=== PATIENT | male | born 1960 ===

== ENCOUNTER 2023-02-28 12:41 | Emergency (ER) | payer OTHER ==
--- OUTSIDE RECORDS SUMMARY | 2023-02-28 12:44 | XMS REPORT | Continuity of Care Document ---
:1960 Author Organization [facility] t Address [address] [facility] [address] [place] [address] Care Team Providers Name Role Phone Raju_P Attending Clinician Unavailable Rubi_P Admitting Clinician Unavailable Payers Payer Name Policy Type Policy Number Effective Date Expiration Date S [facility] [id number] [place] [id number] Problems This patient has no known problems. Allergies, Adverse Reactions, Alerts Allergy Allergy Status Severity Reaction(s) Onset Inactive Treating Comm ents Source Name Type Date Date Clinician P[facility]ILL Allergy Active Moderate Other [facility] [facility] to to severe da [facility] Social History Smoking Status Start Date Stop Date Source Former Smoker [facility] Medications Ordered Filled Start Stop Current Ordering Indication Dosage Frequency Signature Comments Components Source Medication Medication Date Date Medication? Clinician (SIG) Name Name -81 No - [facility] atorvastati atorvastati No atorvastat [facility] citalopram citalopram No 1 Q1D citalopram [facility] 40 mg 40 mg 40 mg da tablet Take tablet Take tablet Medical 1 tablet 1 tablet Take 1 Group every day every day tablet by oral by oral every day route. route. by oral route. pantoprazol pantoprazol No 1 Q1D pantoprazo [place] [facility] 40 mg e 40 mg le 40 mg da tablet,shelby tablet,shelby tablet,del Medical yed release yed release ayed G roup Take 1 Take 1 release tablet tablet Take 1 every day every day tablet by oral by oral every day route. route. by oral route. vitamin vitamin No vitamin [place] [facility] G47-fudmwuf B68-pebnruh T50-hlkshi da B1 1,000 B1 1,000 n B1 1,000 M edical mcg-100 mcg-100 mcg-100 Group mg/mL mg/mL mg/mL injection injection injection solution solution solution Take by Take by Take by injection injection injection route. route. route. Vital Signs Vital Name Observation Time Observation Value Comments Source BP Diastolic 2019-03-13 00:00:00 83 mm[Hg] [facility] Height 2019-03-13 00:00:00 68 [in_i] [facility] BMI (Body Mass 2019-03-13 00:00:00 28.4 kg/m2 [facility] BP Systolic 2019-03-13 00:00:00 134 mm[Hg] [facility] Body Weight 2019-03-13 00:00:00 186.5 [facility]lb_av[facility] BP Diastolic 2019-02-06 00:00:00 92 mm[Hg] [facility] Height 2019-02-06 00:00:00 68 [in_i] [facility] BMI (Body Mass 2019-02-06 00:00:00 27.7 kg/m2 [facility] Group BP Systolic 2019-02-06 00:00:00 150 mm[Hg] [facility] Body Weight 2019-02-06 00:00:00 182.4 [lb_av] [facility] BP Diastolic 2019-01-16 00:00:00 93 mm[Hg] [facility] Height 2019-01-16 00:00:00 68 [in_i] [facility] BMI (Body Mass 2019-01-16 00:00:00 27.8 kg/m2 [facility] BP Systolic 2019-01-16 00:00:00 164 mm[Hg] [facility] Body Weight 2019-01-16 00:00:00 183.1 [lb_av] [facility] BP Diastolic 2018-12-30 00:00:00 83 mm[Hg] [facility] Height 2018-12-30 00:00:00 68 [in_i] [facility] BMI (Body Mass 2018-12-30 00:00:00 27.1 kg/m2 [facility] BP Systolic 2018-12-30 00:00:00 169 mm[Hg] [facility] Body Weight 2018-12-30 00:00:00 178 [lb_av] [facility] BP Diastolic 2018-12-26 00:00:00 80 mm[Hg] [facility] Height 2018-12-26 00:00:00 68 [in_i] [facility] BMI (Body Mass 2018-12-26 00:00:00 26.5 kg/m2 [facility] BP Systolic 2018-12-26 00:00:00 135 mm[Hg] [facility] Body Weight 2018-12-26 00:00:00 174 [lb_av] [facility] BMI (Body Mass 2018-11-07 00:00:00 26.6 kg/m2 [facility] BP Systolic 2018-11-07 00:00:00 137 mm[Hg] [facility] Body Weight 2018-11-07 00:00:00 175 [lb_av] [facility] BP Diastolic 2018-11-07 00:00:00 82 mm[Hg] [facility] Height 2018-11-07 00:00:00 68 [in_i] [facility] Height 2018-10-23 00:00:00 68 [in_i] [facility] BMI (Body Mass 2018-10-23 00:00:00 26.6 kg/m2 [facility] Body Weight 2018-10-23 00:00:00 175 [lb_av] [facility] BP Diastolic 2018-10-07 00:00:00 87 mm[Hg] [facility] Height 2018-10-07 00:00:00 68 [in_i] [facility] BMI (Body Mass 2018-10-07 00:00:00 26.6 kg/m2 [facility] BP Systolic 2018-10-07 00:00:00 148 mm[Hg] [facility] Body Weight 2018-10-07 00:00:00 175 [lb_av] [facility] Procedures Procedure Date / Time Performed Performing Clinician [facility] e unlisted imaging order 2018-10-23 00:00:00 [facility] TYMPANOMETRY 2018-10-07 00:00:00 [facility] Plan of Care Planned Activity Planned Date Details Comments Source Instructions [facility] Encounters Start End Encounter Admission Attending Care Care Encounter Source Date/Time Date/Time Type Type Clinicians Facility Department ID 2020-08-10 2020-08-10 Outpatient Raju_P [facility] [id number] [facility] 02:50:00 02:50:00 [facility] 2019-03-13 2019-03-13 [place] [facility] [place] - [id number] [place] 00:00:00 00:00:00 MD Rubi: [address], [facility] [address] , Ph. 2019-02-06 2019-02-06 [place] [facility] [place] - [id number] [facility] 00:00:00 00:00:00 MD Rubi: [address] [place], [place] [address]rda - [address], [facility] [address] , Ph. 2019-01-16 2019-01-16 [place] [facility] [place] - [id number] [place] 00:00:00 00:00:00 MD Rubi: [address], [facility] [address] , Ph. 2018-12-30 2018-12-30 [place] [facility] [place] - [id number] [place] 00:00:00 00:00:00 MD Rubi: [address], [facility], [facility] [address] , Ph. 2018-12-26 2018-12-26 [place] [facility] [place] - [id number] [place] 00:00:00 00:00:00 MD Rubi: 0405 [address] [facility] [address], [facility], [facility] [address] , Ph. 2018-11-07 2018-11-07 [place] [facility] [place] - [id number] [place] 00:00:00 00:00:00 MD Rubi: [address], [facility] [address], [facility], [facility] [address] , Ph. 2018-10-23 2018-10-23 [place] [facility] [place] - [id number] [place] 00:00:00 00:00:00 MD Rubi: [address], [facility], [facility] [address] , Ph. 2018-10-07 2018-10-07 [place] [facility] [place] - [id number] [place] 00:00:00 00:00:00 MD Rubi: [address], [facility] [address] , Ph. Results Test Description Test Time Test Comments Results Result Sourc e Comments Surgical pathology 2018-12-29 Study Report Yrn bautista study 08:30:00 Medical Group CBC W Auto Differential panel - Blood 2018-12-26 08:40:00 Test Item Value Reference Range Interpretation Comme nts white blood count (test code = white blood count) 5.1 K/uL 4.0- 12.3 red blood count (test code = red blood count) 4.84 M/uL 3.80-5.8 0 Hemoglobin [Mass/volume] in Blood (test code = 718-7) 15.1 g/dL 11.67-17.22 hematocrit (test code = hematocrit) 45.4 % 35.0-51.0 Erythrocyte mean corpuscular volume [Entitic volume] (test 93.7 fL 78-96 code = 45573-1) Erythrocyte mean corpuscular hemoglobin [Entitic mass] 31.1 pg 26.8-33.4 (test code = 78791-1) mean corpuscular HGB conc (test code = mean corpuscular HGB 33.2 g/dL 32.3-36.7 conc) red cell distribution width (test code = red cell 11.4 % 11.6 -15.4 L distribution width) Platelets [#/volume] in Blood (test code = 75432-4) 250 K/uL 11 5-328 Platelet mean volume [Entitic volume] in Blood (test code = 7.8 fL 8.4-11.8 L 17476-3) Neutrophils.band form/100 leukocytes in Blood (test code = 59.1 % 44.7-82.4 00427-0) Lymphocytes/100 leukocytes in Body fluid (test code = 33.2 % 10.0-50.0 28357-0) Monocytes/100 leukocytes in Blood by Automated count (test 5.6 % 3.9-13.4 code = 5905-5) Eosinophils/100 leukocytes in Blood by Automated count 0.9 % 0.0-6.43 (test code = 713-8) Basophils/100 leukocytes in Blood by Automated count (test 1.3 % 0.0-0.72 H code = 706-2) [id number] 08:40:00 Test Item Value Reference Range Interpretation Comments prothrombin time (test code = 10.3 seconds 10.3-12.3 prothrombin time) INR in Blood by Coagulation 0.93 assay (test code = 20265-7) [facility] [id number] 08:40:00 Test Item Value Reference Range Interpretation Comments INR in Blood by Coagulation 31.3 seconds 22.5-37.0 assay (test code = 01440-1) [facility] 2000 panel - Serum or Plasma 2018-12-26 08:40:00 Test Item Value Reference Range Interpretation Comments Glucose [Mass/volume] in Serum or 141 mg/dL 74-106 H Plasma (test code = 2345-7) Urea nitrogen [Mass/volume] in 20 mg/dL 6-20 Serum or Plasma (test code = 3094-0) Osmolality of Serum or Plasma 283 280-300 (test code = 2692-2) creatinine (test code = 0.8 mg/dL 0.70-1.20 creatinine) glomerular filtration rate (test >60.00 code = glomerular filtration rate) Urea nitrogen/Creatinine [Mass 25.0 12-20 H Ratio] in Serum or Plasma (test code = 3097-3) sodium level (test code = sodium 139 mmol/L 135-145 level) potassium level (test code = 4.1 mmol/L 3.5-5.2 potassium level) chloride level (test code = 101 mmol/L 98-108 chloride level) CO2 (test code = CO2) 23 mmol/L 21-32 anion gap (test code = anion gap) 19.1 mEq/L 12-20 calcium level (test code = calcium 9.0 mg/dL 8.6-10.0 level) total protein (test code = total 7.3 g/dL 6.6-8.7 protein) albumin (test code = albumin) 4.4 g/dL 3.5-5.2 globulin (test code = globulin) 2.9 gm/dL A/G ratio (test code = A/G ratio) 1.5 >1.0 bilirubin,total (test code = 0.5 mg/dL 0.0-1.2 bilirubin,total) AST/SGOT (test code = AST/SGOT) 21 U/L 15-40 Alanine aminotransferase 24 U/L 0-41 [Enzymatic activity/volume] in Serum or Plasma (test code = 1742-6) Alkaline phosphatase [Enzymatic 66 U/L 40-130 activity/volume] in Serum or Plasma (test code = 6768-6) [facility]drz[facility]watjw4008-21-03 14:35:13 Test Item Value Reference Range Interpretation Comments Right (test code = Right) Type B Curve Flat Left (test code = Left) Type B Curve Flat [facility]ntxhnshhdmwjmwa4144-95-12 14:35:13 Test Item Value Reference Range Interpretation Comments Right (test code = Right) Type B Curve Flat Left (test code = Left) Type B Curve Flat [facility]2019-01-15 14:35:13 Test Item Value Reference Range Interpretation Comments Right (test code = Right) Type B Curve Flat Left (test code = Left) Type B Curve Flat [facility]
--- NOTE | 2023-02-28 13:25 | EDPHYS ---
Physician Documentation [facility] Name: Jax Carranza Jr Age: 62 yrs Sex: Male : 1960 Arrival Date: 02/28/2023 Time: 12:41 Bed IW6 Private MD: ED Physician Taz Scott HPI: 02/28 13:21 This 62 yrs old Male presents to ER via Ambulatory with complaints of Chest bs3 Pain. 13:21 62-year-old male history of hyperlipidemia presents with chest pain he chest pain on bs3 Saturday it lasted approximately 10 minutes while he was in his car without any other associated symptoms he felt like it buildup in his chest he denies any symptoms since he denies any exertional symptoms any nausea vomiting or anything else bothering him. Historical: - Allergies: 13:02 PENICILLINS; ll1 13:02 Sulfa (Sulfonamide Antibiotics); ll1 - PMHx: 13:02 DDD; GERD; Hypercholesterolemia; Glaucoma; bromchitis; ll1 - PSHx: 13:02 None; ll1 - Immunization history:: Adult Immunizations up to date. - Social history:: Smoking status: Patient reports the use of cigarette tobacco products, smokes one-half pack cigarettes per day. ROS: 13:21 Constitutional: Negative for fever, chills bs3 13:21 All other systems are negative. Exam: 13:21 Constitutional: This is a well developed, well nourished patient who is awake, alert, bs3 and in no acute distress. Head/Face: Normocephalic, atraumatic. Eyes: Pupils equal round and reactive to light, extra-ocular motions intact. Lids and lashes normal. ENT: mmm, no posterior phyarngeal erythema Neck: Trachea midline, no thyromegaly, no neck stiffness Chest/axilla: Normal chest wall appearance and motion. Nontender with no deformity. No lesions are appreciated. Cardiovascular: Regular rate and rhythm with a normal S1 and S2. symmetric pulses in upper extremities Respiratory: Lungs have equal breath sounds bilaterally, clear to auscultation, no respiratory distress Abdomen/GI: Soft, non-tender, no rebound or guarding 13:21 Normal sinus rhythm no ST elevation or depression not changed from [facility] E[facility] Vital Signs: 13:00 BP 161 / 73; Pulse 70; Resp 16; Temp 98.2; Pulse Ox 100% ; Weight 74.84 kg; Height 5 ll1 ft. 8 in. ; Pain 0/10; 13:00 Body Mass Index 25.09 (74.84 kg, 172.72 cm) ll1 13:00 Pain Scale: Adult ll1 MDM: 13:18 Patient medically screened. bs3 13:21 Differential diagnosis: abnormal EKG, acute myocardial infarction, acute pericarditis, bs3 anxiety, coronary artery disease chest wall pain. Data reviewed: vital signs, nurses notes. ED course: Will rule out ACS history and physical not consistent with aortic dissection pneumothorax will check labs patient was seen during an [facility] and discharged prior to labs coming back we did deviate from care and he understood the risks and benefits of this I will call him with the results cell phone number is [phone]. 14:24 ED course: reviewed labs negative for acute pathology, I called the patient and bs3 reviewed all the patients with him. m. 02/28 13:18 Order name: CBC with Diff; Complete Time: 14:24 [facility] 02/28 13:18 Order name: BMP; Complete Time: 14:24 [facility] 02/28 13:18 Order name: Troponin High Sensitivity; Complete Time: 14:24 [facility] 02/28 13:19 Order name: EKG; Complete Time: 13:20 ll1 02/28 13:19 Order name: EKG - Nurse/Tech; Complete Time: 13:19 ll1 Administered Medications: No medications were administered Disposition Summary: 02/28/23 13:24 Discharge Ordered Location: Home bs3 Problem: new bs3 Symptoms: have improved bs3 Condition: Stable bs3 Diagnosis - Chest pain, unspecified bs3 Followup: bs3 - With: Private Physician - When: 48 Hours - Reason: Re-evaluation by your physician Discharge Instructions: - Discharge Summary Sheet bs3 - Nonspecific Chest Pain, Adult bs3 Forms: - Medication Reconciliation Form bs3 - Thank You Letter bs3 - Antibiotic Education bs3 - Prescription Opioid Use bs3 Signatures: Dispatcher [employer] EDMS Volodymyr Stevenson PA PA jmm Lewis, Lynsay, RN RN ll1 Taz Scott MD MD bs3 Corrections: (The following items were deleted from the chart) 13:20 13:18 IV Saline Lock ordered. jmm ll1
--- NOTE | 2023-02-28 13:25 | ER ---
Nurse's Notes [facility] Name: Jax Carranza Jr Age: 62 yrs Sex: Male : 1960 Arrival Date: 02/28/2023 Time: 12:41 Bed IW6 Private MD: Diagnosis: Chest pain, unspecified Presentation: 02/28 13:00 Chief complaint: Patient states: Palpitations last week while traveling. CP on Saturday. ll1 Went to [place], was told to come here for further eval. Coronavirus screen: Vaccine status: Patient reports being unvaccinated. Client denies travel out of the [place] in the last 14 days. At this time, the client does not indicate any symptoms associated with coronavirus-19. Ebola Screen: Patient denies travel to an Ebola-affected area in the 21 days before illness onset. Initial Sepsis Screen: Does the patient meet any 2 criteria? No. Patient's initial sepsis screen is negative. Does the patient have a suspected source of infection? No. Patient's initial sepsis screen is negative. Risk Assessment: Do you want to hurt yourself or someone else? Patient reports no desire to harm self or others. Onset of symptoms was February 26, 2023. 13:00 Method Of Arrival: Ambulatory ll1 13:00 Acuity: BOB 3 ll1 Triage Assessment: 13:03 General: Appears in no apparent distress. Behavior is calm, cooperative, appropriate ll1 for age. Pain: Denies pain. Cardiovascular: Reports chest pain, palpitations. Historical: - Allergies: 13:02 PENICILLINS; ll1 13:02 Sulfa (Sulfonamide Antibiotics); ll1 - PMHx: 13:02 DDD; GERD; Hypercholesterolemia; Glaucoma; bromchitis; ll1 - PSHx: 13:02 None; ll1 - Immunization history:: Adult Immunizations up to date. - Social history:: Smoking status: Patient reports the use of cigarette tobacco products, smokes one-half pack cigarettes per day. Screenin:29 [facility] ED Fall Risk Assessment (Adult) Score/Fall Risk Level 0 - 2 = Low Risk ll1 Oriented to surroundings, Maintained a safe environment, Educated pt \T\ family on fall prevention, incl call for assistance when getting out of bed, Hourly rounding (assess needs \T\ fall precautionary measures) done. Abuse screen: Denies threats or abuse. Nutritional screening: No deficits noted. Tuberculosis screening: No symptoms or risk factors identified. Assessment: 13:28 Reassessment: No changes from previously documented assessment. Patient and/or family ll1 updated on plan of care and expected duration. Pain level reassessed. Patient is alert, oriented x 3, equal unlabored respirations, skin warm/dry/pink. 13:30 Pain: Pain does not radiate. Pain began last week. ll1 Vital Signs: 13:00 BP 161 / 73; Pulse 70; Resp 16; Temp 98.2; Pulse Ox 100% ; Weight 74.84 kg; Height 5 ll1 ft. 8 in. ; Pain 0/10; 13:00 Body Mass Index 25.09 (74.84 kg, 172.72 cm) ll1 13:00 Pain Scale: Adult [facility] ED Course: 12:46 Patient arrived in ED. kj1 13:02 Triage completed. ll1 13:04 Arm band placed on. ll1 13:18 Taz Scott MD is Attending Physician. bs3 13:21 Initial lab(s) drawn, by ny, sent to lab. ll1 13:29 Patient has correct armband on for positive identification. Bed in low position. Call ll1 light in reach. Cardiac monitoring not applicable on this patient. 13:29 No provider procedures requiring assistance completed. Patient did not have IV access ll1 during this emergency room visit. Patient maintains SpO2 saturation greater than 95% on room air. Administered Medications: No medications were administered Medication: 13:29 VIS not applicable for this client. ll1 Outcome: 13:24 Discharge ordered by . bs3 13:29 Discharged to home ambulatory. ll1 13:29 Condition: stable 13:29 Discharge instructions given to patient, family, Instructed on discharge instructions, follow up and referral plans. Demonstrated understanding of instructions, follow-up care, Left with verbal discharge instructions. Dr. Scott will call patient with results. 13:30 Patient left the ED. ll1 Signatures: Jazz Bernard kj1 Harish Thomas, RN RN ll1 Taz Scott MD MD bs3
[2023-02-28 13:52] LABS: Absolute Lymphocytes (CBC) 2.4 K/uL (0.7-4.9); Hematocrit 44.7 % (39.6-49.0); Lymphocytes % 36.8 % (15.3-44.8); MCV 92.5 fL (80-100); RBC Red Blood Cell Count 4.83 M/uL (4.33-5.43)
[2023-02-28 13:58] LABS: Potassium 3.8 mEq/L (3.5-5.1); Troponin High Sensitivity 3.8 pg/mL (<58.9)
[2023-02-28 14:23] VITALS: BP 161/73; TEMP 98.2; O2SAT 100
--- NOTE | 2023-03-01 14:49 | EKG ---
Test Date: 2023-02-28 Test Time: 13:11:12 Bottle Labeler: LML MEASUREMENT RESULTS: Intervals: Rate: 59 TN: 148 QRSD: 98 QT: 410 QTc: 405 [place]: P: 32 TN: 148 QRS: -61 T: 11 INTERPRETIVE STATEMENTS: Sinus bradycardia Left axis deviation Abnormal ECG No previous ECG available for comparison Electronically Signed On 03-01-23 14:44:43 CDT by Ryan Lockett
== END 2023-02-28 13:30 | disposition home or self-care (01) ==
LOC: ER 12:41
DX: R07.9 Chest pain, unspecified (principal); E78.00 Pure hypercholesterolemia, unspecified; F17.210 Nicotine dependence, cigarettes, uncomplicated; Z88.0 Allergy status to penicillin; Z88.2 Allergy status to sulfonamides
CPT/HCPCS: 36415; 80048; 84484; 85025; 93005; 99284